=== PATIENT | female | born 1940 | race Caucasian/White ===

== ENCOUNTER 2016-11-07 09:25 | Emergency (ER) | payer MEDICARE ==
[2016-11-07 09:34] VITALS: BP 144/68
--- NOTE | 2016-11-07 10:24 | UC ---
Skin Complaint HPI - HPI Summary HPI Summary: Pulled down a vine in garden last , realized a day later it was poison sami, has itchy blistered areas on arms, abd, and groin. Has taken prednisone for this in the past. - History of Current Complaint Hx Obtained From: Patient ?: No Onset/Duration: Gradual Onset, Lasting Days Skin Exposure Onset/Duration: Days Ago Timing: Constant Current Severity: Moderate Location: Discrete Character: Pruritus, Redness, Raised Aggravating: Nothing Alleviating: Nothing Associated Signs & Symptoms: Positive: Rash <Rayna Wilhelm - Last Filed: 11/07/16 10:19> <Racheal Sequeira - Last Filed: 11/07/16 11:28> - History of Current Complaint Chief Complaint: UCRash Time Seen by Provider: 11/07/16 10:06 Stated Complaint: POISION SAMI - Allergy/Home Medications Allergies/Adverse Reactions: Allergies Allergy/AdvReac Type Severity Reaction Status Date / Time POISON SAMI Allergy Unknown Uncoded 11/07/16 09:34 Reaction Details Review of Systems Constitutional: Negative Skin: Rash Eyes: Negative ENT: Negative Respiratory: Negative Cardiovascular: Negative Gastrointestinal: Negative Genitourinary: Negative Motor: Negative Neurovascular: Negative Musculoskeletal: Negative Neurological: Negative Psychological: Negative All Other Systems Reviewed And Are Negative: Yes <Rayna Wilhelm - Last Filed: 11/07/16 10:19> PMH/Surg Hx/FS Hx/Imm Hx Endocrine History Of: Denies: Diabetes, Thyroid Disease Cardiovascular History Of: Reports: Hypertension - ON MEDICATION FOR Denies: Cardiac Disorders, Pacemaker/ICD, Congestive Heart Failure Respiratory History Of: Denies: COPD, Asthma GI/ History Of: Denies: Ulcer, Renal Disease Cancer History Of: Denies: Breast Cancer - Surgical History Surgical History: Yes Surgery Procedure, Year, and Place: TONSILLECTOMY TUBAL,LAPAROSCOPY, 32 YRS AGO 09/2013 RIGHT KNEE ARTHROSCOPY, [place]. 01/19/2014 GABE CATARACTS, [facility]. TKR RIGHT . 2014- HIATAL HERNIA REPAIR- [facility] [place]. 07/2015-LEFT RING FINGER HEMANGIOMA REMOVED- [place] - Family History Known Family History: Positive: Other - Colon CA, Ovarian CA, Leukemia, CVA - Social History Lives: Alone Alcohol Use: Daily Alcohol Amount: 2 PER DAY Substance Use Type: None Smoking Status (MU): Former Smoker Type: Cigarettes Amount Used/How Often: 3/4 PACK A DAY X 10 YEARS Have You Smoked in the Last Year: No When Did the Patient Quit Smoking/Using Tobacco: 42 YEARS AGO <Rayna Wilhelm - Last Filed: 11/07/16 10:19> Physical Exam Triage Information Reviewed: Yes Appearance: Well-Appearing, No Pain Distress, Well-Nourished Vital Signs: Initial Vital Signs Temp 98.0 F 11/07/16 09:27 Pulse 90 11/07/16 09:27 Resp 16 11/07/16 09:27 BP 144/68 11/07/16 09:27 Pulse Ox 98 11/07/16 09:27 Vital Signs Reviewed: Yes Eye Exam: Normal Eyes: Positive: Conjunctiva Clear ENT Exam: Normal ENT: Positive: Normal ENT inspection, Hearing grossly normal, Pharynx normal, TMs normal Dental Exam: Normal Neck exam: Normal Respiratory Exam: Normal Respiratory: Positive: Chest non-tender, Lungs clear, Normal breath sounds, No respiratory distress, No accessory muscle use Cardiovascular Exam: Normal Cardiovascular: Positive: RRR, No Murmur Musculoskeletal Exam: Normal Neurological Exam: Normal Neurological: Positive: Alert Psychological Exam: Normal Skin Exam: Other - red, irregular, confluent areas of vesicular rash on inner forearms, abd, and groin. <Rayna Wilhelm - Last Filed: 11/07/16 10:19> Vital Signs: Initial Vital Signs Temp 98.0 F 11/07/16 09:27 Pulse 90 11/07/16 09:27 Resp 16 11/07/16 09:27 BP 144/68 11/07/16 09:27 Pulse Ox 98 11/07/16 09:27 <Racheal Sequeira - Last Filed: 11/07/16 11:28> Course/Dx - Diagnoses Provider Diagnoses: contact dermatitis <Rayna Wilhelm - Last Filed: 11/07/16 10:19> Discharge <Rayna Wilhelm - Last Filed: 11/07/16 10:19> <Racheal Sequeira - Last Filed: 11/07/16 11:28> - Discharge Plan Condition: Stable Disposition: HOME Prescriptions: predniSONE TAB* [Deltasone TAB*] 50 mg PO DAILY #5 tab Patient Education Materials: Poison Sami (ED) Referrals: Storm,Shawnti R, [employer] [Primary Care Provider] - Attestation Statement User Type: Provider - I was available for consult. This patient was seen by the KRISTIN. The patient was not presented to, seen by, or examined by me. -Isaias <Racheal Sequeira - Last Filed: 11/07/16 11:28>
== END 2016-11-07 10:27 | disposition home or self-care (01) ==
LOC: UCEAST 09:25
DX: L25.5 Unspecified contact dermatitis due to plants, except food (principal)
CPT/HCPCS: 99212; G0463

== ENCOUNTER 2018-11-21 10:19 | Emergency (ER) | payer MEDICARE, BC ==
[2018-11-21 10:34] VITALS: BP 147/83
--- NOTE | 2018-11-21 10:56 | UC ---
Skin Complaint HPI - HPI Summary HPI Summary: 78 yo female presents with tick bite. She tells me that on 11/17 she was outdoors gardening most of the day. When she returned inside later that evening she noticed a tick to her left anterior thigh. Her removed the tick. She is here today because she is concerned if she should be worried about this. She is confident the tick was on her <12 hours. Tick was not engorged. She denies fever , pain at the site, or rash. - History of Current Complaint Chief Complaint: UCSkin Time Seen by Provider: 11/21/18 10:56 Stated Complaint: TICK BITE Hx Obtained From: Patient Onset/Duration: Sudden Onset Current Severity: None Pain Intensity: 0 - Allergy/Home Medications Allergies/Adverse Reactions: Allergies Allergy/AdvReac Type Severity Reaction Status Date / Time POISON SAMI Allergy Unknown Uncoded 11/21/18 10:35 Reaction Details PMH/Surg Hx/FS Hx/Imm Hx Cardiovascular History: Hypertension Psychological History: Anxiety, Depression - Surgical History Surgical History: Yes Surgery Procedure, Year, and Place: TONSILLECTOMY TUBAL,LAPAROSCOPY, 32 YRS AGO 09/2013 RIGHT KNEE ARTHROSCOPY, [place]. 01/19/2014 GABE CATARACTS, [facility] [place]. TKR RIGHT 2014, [place]. 2014- HIATAL HERNIA REPAIR- [facility] [place]. 07/2015-LEFT RING FINGER HEMANGIOMA REMOVED- [place] - Family History Known Family History: Positive: Other - Colon CA, Ovarian CA, Leukemia, CVA - Social History Occupation: Retired Lives: With Family Alcohol Use: Daily Alcohol Amount: 2 PER DAY Substance Use Type: None Smoking Status (MU): Former Smoker Type: Cigarettes Amount Used/How Often: 3/4 PACK A DAY X 10 YEARS Have You Smoked in the Last Year: No When Did the Patient Quit Smoking/Using Tobacco: 42 YEARS AGO Review of Systems All Other Systems Reviewed And Are Negative: Yes Constitutional: Positive: Negative Skin: Positive: Other - tick bite left thigh Respiratory: Positive: Negative Cardiovascular: Positive: Negative Neurological: Positive: Negative Psychological: Positive: Negative Physical Exam - Summary Physical Exam Summary: GENERAL: NAD. WDWN. No pain distress. SKIN: LEFT ANTERIOR THIGH: there is a 7mm diameter of mild erythema and edema with central 1mm area of superficial skin loss. No streaking, bleeding, or drainage. CHEST: No accessory muscle use. Breathing comfortably and in no distress. CV: Pulses intact. Cap refill <2seconds NEURO: Alert. PSYCH: Age appropriate behavior. Triage Information Reviewed: Yes Vital Signs: Initial Vital Signs Temp 98.2 F 11/21/18 10:31 Pulse 75 11/21/18 10:31 Resp 16 11/21/18 10:31 BP 147/83 11/21/18 10:31 Pulse Ox 100 11/21/18 10:31 Vital Signs Reviewed: Yes Course/Dx - Course Course Of Treatment: Tick bite site appears to be healing well and without signs of infection. Educated pt about ticks and lyme disease. Advised that her risk is negligible given that she removed the tick promptly and it was not engorged. Advised to monitor the area and herself for rash or signs/symptoms of lyme disease and be rechecked if she develops these. - Diagnoses Provider Diagnosis: Tick bite Discharge - Sign-Out/Discharge Documenting (check all that apply): Patient Departure All imaging exams completed and their final reports reviewed: No Studies - Discharge Plan Condition: Stable Disposition: HOME Patient Education Materials: Tick Bite (ED) Referrals: Amilcar Hanley [employer] [Primary Care Provider] - Additional Instructions: You have been bitten by a tick. Once the tick is removed, these "bites" usually cause no problems. Tick fever, tick paralysis, Alicia Spotted fever, and Lyme disease are uncommon -- but you should mention this tick bite to your doctor if you develop unusual symptoms in the next several weeks. If you develop any of the following, please see your physician promptly: (1) Fever, chills, or generalized malaise associated with a headache. (2) A red round area at the site of the bite (or elsewhere) (3) Joint pain, joint swelling or generalized weakness. (4) Redness, swelling, or drainage at the site of the bite. Ticks do not have a typical "head" attached to their body. There are mouth parts sticking out which they use to feed. If there are mouth parts left behind in the wound there is NO increased risk of Lyme infection or disease transmission. If mouth parts remain after tick removal, the best thing to do is apply warm soaks to the area 3-4 times per day to encourage the skin to expel the foreign material. WHEN A TICK IS NOT ENGORGED AND HAS BEEN ON LESS THAN 24 HOURS - THE RISK FOR LYME IS NEGLIGIBLE. YOU CAN REMOVE THE TICK AND OBSERVE THE AREA ON YOUR OWN. - Billing Disposition and Condition Condition: STABLE Disposition: Home
== END 2018-11-21 11:09 | disposition home or self-care (01) ==
LOC: UCEAST 10:19
DX: T63.481A Toxic effect of venom of other arthropod, accidental (unintentional), initial encounter (principal); Y92.007 Garden or yard of unspecified non-institutional (private) residence as the place of occurrence of the external cause; I10 Essential (primary) hypertension
CPT/HCPCS: 99211; G0463